=== PATIENT | male | born 1990 | race African-American/Black ===

== ENCOUNTER 2016-06-11 21:43 | Emergency (ER) | payer MEDICAID ==
[~2016-06-11] VITALS: Ht 182.9 cm; Wt 65.6 kg
[~2016-06-11 21:43] MED LIST: LEVE500T53 PO
[2016-06-11 21:54] VITALS: BP 118/81
== END 2016-06-11 23:03 | disposition home or self-care (01) ==
LOC: ED 22:57
DX: R05 Cough (principal); R09.81 Nasal congestion; M79.1 Myalgia; F12.10 Cannabis abuse, uncomplicated; E73.9 Lactose intolerance, unspecified
CPT/HCPCS: 71020